=== PATIENT | female | born 1945 | race Caucasian/White ===

== ENCOUNTER → 2019-07-06 | Outpatient (CLI) | payer OTHER ==
[~2019-07-06] VITALS: Ht 165.1 cm; Wt 81.6 kg
[~2019-07-06] MED LIST: ASA81BEC PO; CARAFATE 1 GM TA1 GM PO; CATAPRES0.1 MG PO; FISH OIL 1,2001 EAC4 PO; NAPROSYN500 M1 PO; PRINIVIL10 MG PO; PROTONIX40 M2 PO; TENORMIN25 MG PO; TYLENOL EXTRA500 MG PO
[2019-07-06 07:58] VITALS: BP 153/69
[2019-07-06 08:03] LABS: HEMATOCRIT 42.3 % (37.0-47.0); HEMOGLOBIN 14.1 gm/dL (12.0-15.0); MCH 29.4 pg (26.0-34.0); MCHC 33.4 g/dL (28.0-37.0); MCV 88.1 fL (80.0-100.0); RBC 4.8 mil/uL (4.20-5.00); RDW 14.1 % (10.5-14.5); WBC 5.3 thou/uL (4.0-11.0)
[2019-07-06 08:09] LABS: CREATININE 0.9 mg/dL (0.6-1.0); POTASSIUM 4.5 mmol/L (3.5-5.1)
--- NOTE | 2019-07-06 14:06 | EKG ---
[facility] Fanny Ambrocio [facility] [place] [address] ELECTROCARDIOGRAM REPORT Name: NATA DOUGLAS Room #: REG [facility]#: [id number] Admission: 07/06/19 Attend Phys: Brayan Barbour MD, Discharge: Date of : 49 Report #: [id number] THIS REPORT FOR: cc: Tyler Smith - Family physician unknown Yury Paula MD ~ THIS REPORT FOR: //name// [facility] Test Date: 2019-07-06 Test Time: 09:38:53 Pat Name: NATA DOUGLAS Department: Room: Gender: F Neurology Technologist: CAYLA : 1945 Requested By: Brayan Barbour Order Number: [id number] MD: Yury Paula Measurements Intervals Cecil Rate: 71 P: 46 TX: 205 QRS: 7 QRSD: 104 T: 13 QT: 423 QTc: 460 Interpretive Statements Sinus rhythm Atrial premature complexes Abnormal R-wave progression, early transition No previous ECG available for comparison Electronically Signed On 07-06-2019 14:04:16 CDT by Yury Paula [email or web address] <ELECTRONICALLY SIGNED> By: Yury Paula MD 07/06/19 1404 Yury Paula MD /EPI
--- NOTE | 2019-07-09 15:17 | CATHLAB ---
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 A PINNACLE 6FR Sheath #[id number] sheath was inserted into the RFA. Coronary angiography was performed using coronary diagnostic catheters. The right coronary system was accessed and visualized with a JR4 catheter. The left coronary system was accessed and visualized with a JL4 catheter. The left ventricle was accessed and visualized with a PIGTAIL catheter. Left ventriculogram was performed in 30 degree projection. An aortogram of the abdominal aorta was performed. Closure device was deployed with a 6 Fr MYNXGRIP 6/7F #[id number]. Hemostasis was obtained with manual pressure following sheath removal without any complications. The patient tolerated the procedure well and there were no complications associated with the procedure. There was no hematoma. [facility] [address] [place] [address] INVASIVE PROCEDURE REPORT Name: NATA DOUGLAS Room #: [facility]#: [id number] Admission: 07/06/19 Attend Phys: Brayan Barbour, Discharge: Date of : 49 Report #: [id number] Intraoperative Conscious Sedation Sedation start time: 10:39 Case end Time: 11:18 Fentanyl 50 mcg Versed 1 mg Fluoro Time: 2.23 minutes Dose: DAP 2673.40 cGycm2 284 mGy Contrast Type and Amount: Omnipaque 90 ml Hemodynamics The right atrial mean pressure is 14 mmHg. The right ventricular pressure is 44/10 mmHg. The pulmonary artery pressure is 44/23 mmHg with a mean of 33 mmHg. The mean pulmonary capillary wedge pressure is 19 mmHg. The aortic pressure is 133/68 mmHg with a mean of 91 mmHg. The left ventricular pressure is 151/11 mmHg with a mean of mmHg. The left ventricular end diastolic pressure is 23 mmHg. The cardiac output using thermo method is 5.35 L/min. The cardiac index using thermo method is 2.83 L/min/m2. Conclusion 1. Normal left ventricular size and systolic function EF 55% #2 abdominal aorta is mildly ectatic but no aneurysm or plaquing noted. #3 left main mild irregularity giving rise to LAD and circumflex #4 LAD is mild to moderately disease in the mid third 4050% relatively small in caliber as extends around the apex. Nothing occlusive. #5 circumflex OM nondominant with mild irregularity #6 dominant right coronary artery with mild plaquing. #7 successful right heart catheterization with cardiac output by thermodilution. See above hemodynamics. Recommendations and plan: No indication for coronary intervention. Continue aggressive risk factor modification. <ELECTRONICALLY SIGNED> By: Brayan Barbour MD, FACC 07/09/19 1515 1515 1515 Brayan Barbour MD, FACC /INF
== END | disposition home or self-care (01) ==
LOC: CATH 06:49
PROVIDERS: Internal Medicine Cardiovascular Disease
DX: R07.9 Chest pain, unspecified (principal); R94.39 Abnormal result of other cardiovascular function study; I25.10 Atherosclerotic heart disease of native coronary artery without angina pectoris; I77.811 Abdominal aortic ectasia; R06.00 Dyspnea, unspecified; I10 Essential (primary) hypertension; J44.9 Chronic obstructive pulmonary disease, unspecified; K21.9 Gastro-esophageal reflux disease without esophagitis; Z98.890 Other specified postprocedural states; Z79.899 Other long term (current) drug therapy; Z82.49 Family history of ischemic heart disease and other diseases of the circulatory system; Z79.82 Long term (current) use of aspirin; Z88.8 Allergy status to other drugs, medicaments and biological substances